=== PATIENT | female | born 1940 | race Caucasian/White ===

== ENCOUNTER 2021-08-21 10:28 | Emergency (ER) | payer OTHER, MEDICARE | END 2021-08-21 16:05 | disposition home or self-care (01) | LOC: CSHERS 10:28 | DX: M54.42 Lumbago with sciatica, left side (principal); V49.50XA Passenger injured in collision with unspecified motor vehicles in traffic accident, initial encounter; I13.2 Hypertensive heart and chronic kidney disease with heart failure and with stage 5 chronic kidney disease, or end stage renal disease; N18.6 End stage renal disease; I50.9 Heart failure, unspecified; M19.90 Unspecified osteoarthritis, unspecified site; Z87.891 Personal history of nicotine dependence | CPT/HCPCS: 71045; 72170 ==

== ENCOUNTER 2022-02-14 13:43 | Inpatient (IN) | payer MEDICARE, OTHER ==
[2022-02-14 14:27] LABS: #Eosinphils 0.2 10x3/uL (0.0-0.5); #Monocytes 0.4 10x3/uL (0.0-1.1); #Neutrophils 2.3 10x3/uL (1.5-8.4); %Basophils 0.3 % (0.0-2.0); %Eosinophils 4.7 % (0.0-6.0); %Lymphocytes 15.4 % (18.0-47.0); %Monocytes 12.5 % (0.0-10.0); %Neutrophils 66.8 % (40.0-75.0); Hemoglobin 5.4 g/dL (12.0-15.5); Mean Corpuscular Hemoglobin 23.3 pg (27.0-33.0); Mean Corpuscular Volume 86.2 fl (81.6-98.3); Mean Platelet Volume 10.8 fl (7.4-10.4); Platelet Count 214 10x3/uL (150-450); RBC Distribution Width 18.3 % (11.5-14.5); Red Blood Cell (RBC) Count 2.32 10x6/uL (3.90-5.03); White Blood Cell (WBC) Count 3.4 10x3/uL (3.5-10.5)
[2022-02-14 14:41] LABS: ALT (SGPT) 6 U/L (8-55); AST (SGOT) 15 U/L (5-34); Albumin 3.3 g/dL (3.4-4.8); Alkaline Phosphatase 66 U/L (40-110); Anion Gap 15 mmol/L (10-20); BUN (Urea Nitrogen) 41 mg/dL (9.8-20.1); Bilirubin, Total 0.4 mg/dL (0.2-1.2); Calc. Creatinine Clearance 0 mL/min (70-130); Calcium 8.5 mg/dL (7.8-10.44); Carbon Dioxide 27 mmol/L (23-31); Chloride 101 mmol/L (98-107); Glucose 129 mg/dL (83-110); Potassium 4.1 mmol/L (3.5-5.1); Protein, Total 6.3 g/dL (5.8-8.1); Sodium 139 mmol/L (136-145)
[2022-02-14 14:46] LABS: Anisocytosis SLIGHT = 6-15 cells (100X) (0-5/hpf); Hypochromia SLIGHT = 6-15 cells (100X) (0-5/hpf); Platelet Morphology Comment Appears Adequate
[2022-02-14] MEDS ORDERED: Acetaminophen 650 MG Suppository PR PRN (19:34)
[2022-02-14] MEDS ORDERED: Ondansetron PF 4 MG/2 ML Vial IVP PRN (19:34)
[2022-02-14] MEDS ORDERED: Ondansetron ODT 4 MG TAB PO PRN (19:34)
[2022-02-14] MEDS ORDERED: Acetaminophen 325 MG TAB PO PRN (19:34)
[2022-02-14 19:39] VITALS: BMI 19.3
[2022-02-14] MEDS: Pantoprazole 40 MG VIAL IVP SCH (20:33)
[2022-02-15 02:46] LABS: #Eosinphils 0.2 10x3/uL (0.0-0.5); #Monocytes 0.3 10x3/uL (0.0-1.1); %Eosinophils 5.6 % (0.0-6.0); %Lymphocytes 17.9 % (18.0-47.0); %Neutrophils 65.2 % (40.0-75.0); Hemoglobin 8.8 g/dL (12.0-15.5); Mean Corpuscular Hemoglobin 25.8 pg (27.0-33.0); Mean Corpuscular Volume 85.9 fl (81.6-98.3); Mean Platelet Volume 9.9 fl (7.4-10.4); Platelet Count 179 10x3/uL (150-450); RBC Distribution Width 17.9 % (11.5-14.5); Red Blood Cell (RBC) Count 3.41 10x6/uL (3.90-5.03)
[2022-02-15 02:56] LABS: Anion Gap 13 mmol/L (10-20); BUN (Urea Nitrogen) 42 mg/dL (9.8-20.1); Calc. Creatinine Clearance 24 mL/min (70-130); Calcium 8.6 mg/dL (7.8-10.44); Carbon Dioxide 29 mmol/L (23-31); Chloride 104 mmol/L (98-107); Glucose 111 mg/dL (83-110); Potassium 4.1 mmol/L (3.5-5.1); Sodium 142 mmol/L (136-145)
[2022-02-15] MEDS: Pantoprazole 40 MG VIAL IVP SCH (07:53)
[2022-02-15] MEDS ORDERED: Levothyroxine Sodium 50 MCG TAB PO SCH (09:00)
[2022-02-15] MEDS ORDERED: Carvedilol 25 MG TAB PO SCH (09:00)
[2022-02-15] MEDS: Amiodarone 200 MG TAB PO SCH (09:13)
[2022-02-15] MEDS: Folic Acid 1 MG TAB PO SCH (09:14)
[2022-02-15] MEDS: Ferrous Sulfate 325 MG TAB PO SCH (09:14)
[2022-02-15] MEDS: Rifaximin 550 MG TAB PO SCH (09:14)
[2022-02-15] MEDS: Carvedilol 25 MG TAB PO SCH (16:06)
[2022-02-15 16:14] LABS: SARS-CoV-2 PCR by NAA Not Detected (NotDetected)
[2022-02-15] MEDS: Mirtazapine 15 MG TAB PO SCH (21:41)
[2022-02-15] MEDS: Atorvastatin Calcium 10 MG TAB PO SCH (21:41)
[2022-02-15] MEDS ORDERED: Metoprolol Tartrate 5 MG/5 ML VIAL IVP SCH (23:45)
[2022-02-16] MEDS ORDERED: Lorazepam 2 MG/ML VIAL SLOW IVP SCH (00:30)
[2022-02-16 04:32] LABS: #Eosinphils 0.1 10x3/uL (0.0-0.5); #Monocytes 0.5 10x3/uL (0.0-1.1); #Neutrophils 5.3 10x3/uL (1.5-8.4); %Basophils 0.5 % (0.0-2.0); %Eosinophils 0.8 % (0.0-6.0); %Lymphocytes 9.9 % (18.0-47.0); %Monocytes 7.6 % (0.0-10.0); %Neutrophils 80.9 % (40.0-75.0); Hemoglobin 9.3 g/dL (12.0-15.5); Mean Corpuscular HGB CONC 30.4 g/dL (32.0-36.0); Mean Corpuscular Hemoglobin 25.8 pg (27.0-33.0); Mean Corpuscular Volume 84.8 fl (81.6-98.3); Mean Platelet Volume 10.7 fl (7.4-10.4); Platelet Count 200 10x3/uL (150-450); RBC Distribution Width 17.3 % (11.5-14.5); Red Blood Cell (RBC) Count 3.61 10x6/uL (3.90-5.03); White Blood Cell (WBC) Count 6.6 10x3/uL (3.5-10.5)
[2022-02-16 04:45] LABS: Anion Gap 15 mmol/L (10-20); BUN (Urea Nitrogen) 26 mg/dL (9.8-20.1); Calc. Creatinine Clearance 33 mL/min (70-130); Calcium 8.6 mg/dL (7.8-10.44); Carbon Dioxide 22 mmol/L (23-31); Chloride 107 mmol/L (98-107); Glucose 92 mg/dL (83-110); Potassium 3.8 mmol/L (3.5-5.1); Sodium 140 mmol/L (136-145)
[2022-02-16] MEDS: Levothyroxine Sodium 50 MCG TAB PO SCH (09:29)
[2022-02-16] MEDS: Amiodarone 200 MG TAB PO SCH (10:07)
[2022-02-16] MEDS: Ferrous Sulfate 325 MG TAB PO SCH (10:07)
[2022-02-16] MEDS: Folic Acid 1 MG TAB PO SCH (10:07)
[2022-02-16] MEDS: Rifaximin 550 MG TAB PO SCH (10:11)
[2022-02-16] MEDS: Carvedilol 25 MG TAB PO SCH ×2 (10:11→17:14)
[2022-02-16] MEDS: Mirtazapine 15 MG TAB PO SCH (22:02)
[2022-02-16] MEDS: Atorvastatin Calcium 10 MG TAB PO SCH (22:02)
[2022-02-17 04:31] LABS: #Eosinphils 0.3 10x3/uL (0.0-0.5); #Monocytes 0.3 10x3/uL (0.0-1.1); %Basophils 0.9 % (0.0-2.0); %Eosinophils 8.2 % (0.0-6.0); %Lymphocytes 17.7 % (18.0-47.0); %Monocytes 9.2 % (0.0-10.0); %Neutrophils 63.7 % (40.0-75.0); Mean Corpuscular HGB CONC 29.7 g/dL (32.0-36.0); Mean Corpuscular Hemoglobin 25.4 pg (27.0-33.0); Mean Corpuscular Volume 85.4 fl (81.6-98.3); Mean Platelet Volume 10.5 fl (7.4-10.4); Platelet Count 177 10x3/uL (150-450); RBC Distribution Width 16.9 % (11.5-14.5); Red Blood Cell (RBC) Count 3.55 10x6/uL (3.90-5.03); White Blood Cell (WBC) Count 3.2 10x3/uL (3.5-10.5)
[2022-02-17 04:48] LABS: Anisocytosis SLIGHT = 6-15 cells (100X) (0-5/hpf); Hypochromia SLIGHT = 6-15 cells (100X) (0-5/hpf); Platelet Morphology Comment Appears Adequate
[2022-02-17] MEDS: Levothyroxine Sodium 50 MCG TAB PO SCH (05:10)
[2022-02-17] MEDS: Ferrous Sulfate 325 MG TAB PO SCH (09:16)
[2022-02-17] MEDS: Rifaximin 550 MG TAB PO SCH (09:16)
[2022-02-17] MEDS: Amiodarone 200 MG TAB PO SCH (09:16)
[2022-02-17] MEDS: Folic Acid 1 MG TAB PO SCH (09:16)
[2022-02-17] MEDS: Carvedilol 25 MG TAB PO SCH ×2 (09:20→18:15)
[2022-02-17 18:38] VITALS: BP 119/76; TEMP 97.5
== END 2022-02-17 18:20 | DRG 812 ==
LOC: CSHERS 13:43 → CSHTELE 18:07 → OBSVTOIN 02-16 18:13
PROVIDERS: ADMIT Internal Medicine; ATTEND Internal Medicine
PROC: 30233N1 Transfusion of Nonautologous Red Blood Cells into Peripheral Vein, Percutaneous Approach (ICD-10-PCS; principal; 2022-02-14)
DX: D64.89 Other specified anemias (principal); I13.0 Hypertensive heart and chronic kidney disease with heart failure and stage 1 through stage 4 chronic kidney disease, or unspecified chronic kidney disease; I50.22 Chronic systolic (congestive) heart failure; Z95.0 Presence of cardiac pacemaker; G30.9 Alzheimer's disease, unspecified; F02.80 Dementia in other diseases classified elsewhere, unspecified severity, without behavioral disturbance, psychotic disturbance, mood disturbance, and anxiety; I48.91 Unspecified atrial fibrillation; M54.50 Low back pain, unspecified; I27.20 Pulmonary hypertension, unspecified; Z66 Do not resuscitate; N18.30 Chronic kidney disease, stage 3 unspecified; E78.5 Hyperlipidemia, unspecified; J44.9 Chronic obstructive pulmonary disease, unspecified; M06.9 Rheumatoid arthritis, unspecified; E03.9 Hypothyroidism, unspecified; Z96.643 Presence of artificial hip joint, bilateral; Z20.822 Contact with and (suspected) exposure to COVID-19; Z85.3 Personal history of malignant neoplasm of breast; Z90.12 Acquired absence of left breast and nipple; Z51.5 Encounter for palliative care; Z88.0 Allergy status to penicillin; Z88.5 Allergy status to narcotic agent; Z88.8 Allergy status to other drugs, medicaments and biological substances; Z79.899 Other long term (current) drug therapy; Z79.890 Hormone replacement therapy; Z90.710 Acquired absence of both cervix and uterus; Z98.890 Other specified postprocedural states; Z87.891 Personal history of nicotine dependence; Z91.81 History of falling
CPT/HCPCS: 36415; 36430; 70450; 71045; 72100; 80048; 80053; 82274; 83605; 84484; 85025; 86850; 86900; 86901; 93005; 94760; 96374; 96375; 96376; C9113; G0378; J2060; P9016; U0003; U0005

== ENCOUNTER 2022-02-26 14:43 | Observation (INO) | payer MEDICARE ==
[2022-02-26 15:34] LABS: #Eosinphils 0.3 10x3/uL (0.0-0.5); #Monocytes 0.3 10x3/uL (0.0-1.1); #Neutrophils 2.9 10x3/uL (1.5-8.4); %Basophils 0.5 % (0.0-2.0); %Eosinophils 7.7 % (0.0-6.0); %Lymphocytes 18.1 % (18.0-47.0); %Monocytes 7.5 % (0.0-10.0); %Neutrophils 65.1 % (40.0-75.0); Hemoglobin 5.2 g/dL (12.0-15.5); Mean Corpuscular HGB CONC 27.7 g/dL (32.0-36.0); Mean Corpuscular Hemoglobin 24.9 pg (27.0-33.0); Mean Platelet Volume 11.1 fl (7.4-10.4); Platelet Count 164 10x3/uL (150-450); Red Blood Cell (RBC) Count 2.09 10x6/uL (3.90-5.03); White Blood Cell (WBC) Count 4.4 10x3/uL (3.5-10.5)
[2022-02-26 15:45] LABS: PTT 22.2 sec (22.0-33.0)
[2022-02-26 15:51] LABS: ALT (SGPT) 8 U/L (8-55); AST (SGOT) 12 U/L (5-34); Albumin 2.8 g/dL (3.4-4.8); Alkaline Phosphatase 56 U/L (40-110); Anion Gap 14 mmol/L (10-20); BUN (Urea Nitrogen) 67 mg/dL (9.8-20.1); Bilirubin, Total 0.3 mg/dL (0.2-1.2); CK (CPK) 9 U/L (29-168); Calc. Creatinine Clearance 0 mL/min (70-130); Calcium 9.4 mg/dL (7.8-10.44); Carbon Dioxide 28 mmol/L (23-31); Chloride 110 mmol/L (98-107); Globulin 2.9 g/dL (2.4-3.5); Glucose 110 mg/dL (83-110); Potassium 4.8 mmol/L (3.5-5.1); Protein, Total 5.7 g/dL (5.8-8.1); Sodium 147 mmol/L (136-145)
[2022-02-26 15:55] LABS: Anisocytosis SLIGHT = 6-15 cells (100X) (0-5/hpf); Hypochromia SLIGHT = 6-15 cells (100X) (0-5/hpf); Platelet Morphology Comment Appears Adequate
[2022-02-26] MEDS ORDERED: Acetaminophen 325 MG TAB PO PRN (18:37)
[2022-02-26] MEDS ORDERED: Acetaminophen 650 MG Suppository PR PRN (18:37)
[2022-02-26] MEDS ORDERED: Ondansetron PF 4 MG/2 ML Vial IVP PRN (18:37)
[2022-02-26] MEDS ORDERED: Ondansetron ODT 4 MG TAB PO PRN (18:37)
[2022-02-26] MEDS ORDERED: Dextrose 5% in Water 1,000 ML IV PRN (18:42)
[2022-02-26] MEDS ORDERED: Dextrose 50% Abboject 50 ML SYRINGE SLOW IVP PRN (18:42)
[2022-02-26] MEDS ORDERED: Electrolyte Replacement Protocol 1 EACH FS SCH (18:45)
[2022-02-26 19:24] VITALS: BMI 17.1
[2022-02-26 20:38] LABS: Platelet Count 171 10x3/uL (150-450)
[2022-02-26 20:42] LABS: Hemoglobin 6.9 g/dL (12.0-15.5)
[2022-02-26] MEDS ORDERED: Mirtazapine 15 MG TAB PO SCH (21:00)
[2022-02-26] MEDS: Lactated Ringer's 500 ML IV SCH (21:31)
[2022-02-26] MEDS: Carvedilol 25 MG TAB PO SCH (21:31)
[2022-02-26] MEDS: Pantoprazole 40 MG VIAL IVP SCH (21:31)
[2022-02-27] MEDS: Lactated Ringer's 500 ML IV SCH (02:45)
[2022-02-27] MEDS ORDERED: Levothyroxine Sodium 50 MCG TAB PO SCH (06:00)
[2022-02-27 06:01] LABS: Anion Gap 13 mmol/L (10-20); BUN (Urea Nitrogen) 57 mg/dL (9.8-20.1); Calc. Creatinine Clearance 37 mL/min (70-130); Calcium 8.7 mg/dL (7.8-10.44); Carbon Dioxide 28 mmol/L (23-31); Chloride 110 mmol/L (98-107); Glucose 90 mg/dL (83-110); Potassium 4.7 mmol/L (3.5-5.1); Sodium 146 mmol/L (136-145)
[2022-02-27 06:05] LABS: Hemoglobin 8.8 g/dL (12.0-15.5); Platelet Count 158 10x3/uL (150-450)
[2022-02-27] MEDS ORDERED: Magnesium 2 GM/50 ML(in water) 2 GM in Premix Bag 1 BAG IVPB SCH (08:00)
[2022-02-27] MEDS: Carvedilol 25 MG TAB PO SCH (08:23)
[2022-02-27] MEDS: Pantoprazole 40 MG VIAL IVP SCH (08:24)
[2022-02-27] MEDS ORDERED: Cyanocobalamin (Vitamin B-12) 1,000 MCG TAB PO SCH (09:00)
[2022-02-27] MEDS ORDERED: Cholecalciferol 1,000 UNITS (25 MCG) TAB PO SCH (09:00)
[2022-02-27] MEDS ORDERED: Amiodarone 200 MG TAB PO SCH (09:00)
[2022-02-27] MEDS ORDERED: Ferrous Sulfate 325 MG TAB PO SCH (09:00)
[2022-02-27] MEDS ORDERED: Folic Acid 1 MG TAB PO SCH (09:00)
[2022-02-27 11:32] LABS: Hemoglobin 8.7 g/dL (12.0-15.5); Platelet Count 162 10x3/uL (150-450)
[2022-02-27 16:44] VITALS: BP 114/67; TEMP 97.7
== END 2022-02-27 07:25 | disposition home or self-care (01) ==
LOC: CSHERS 14:43 → CSHTELE 16:50
PROVIDERS: ADMIT Hospitalist; ATTEND Hospitalist
DX: D50.0 Iron deficiency anemia secondary to blood loss (chronic) (principal); N17.9 Acute kidney failure, unspecified; I13.0 Hypertensive heart and chronic kidney disease with heart failure and stage 1 through stage 4 chronic kidney disease, or unspecified chronic kidney disease; N18.30 Chronic kidney disease, stage 3 unspecified; I50.22 Chronic systolic (congestive) heart failure; I48.91 Unspecified atrial fibrillation; Z20.822 Contact with and (suspected) exposure to COVID-19; G30.9 Alzheimer's disease, unspecified; F02.80 Dementia in other diseases classified elsewhere, unspecified severity, without behavioral disturbance, psychotic disturbance, mood disturbance, and anxiety; R29.6 Repeated falls; J44.9 Chronic obstructive pulmonary disease, unspecified; M06.9 Rheumatoid arthritis, unspecified; Z79.890 Hormone replacement therapy; Z79.899 Other long term (current) drug therapy; Z88.0 Allergy status to penicillin; Z88.1 Allergy status to other antibiotic agents; Z88.5 Allergy status to narcotic agent; Z95.0 Presence of cardiac pacemaker; Z66 Do not resuscitate
CPT/HCPCS: 36430; 80048; 80053; 82550; 82962 ×2; 83605; 83735; 84100; 84484; 85014 ×2; 85018 ×2; 85025; 85049 ×2; 85610; 85730; 86850; 86900; 86901; 86920; 93005; 94760; 97139 ×3; 97530; 97535; 99285; P9016; U0003; U0005; 36415; 36416; C9113; J3475; J7120